=== PATIENT | male | born 1945 | race Caucasian/White ===

== ENCOUNTER 2017-01-12 15:05 | Inpatient (IN) | payer MEDICARE, BC ==
[~2017-01-12] VITALS: Ht 167.6 cm; Wt 73.5 kg
[2017-01-12 16:00] VITALS: BP 130/79
[2017-01-12] MEDS ORDERED: QUET100T PO (16:17)
[2017-01-12] MEDS ORDERED: ASPI-605 PO (16:17)
[2017-01-12] MEDS ORDERED: QUET25TA PO (16:17)
[2017-01-12] MEDS ORDERED: MAGNESIUM HYDROXIDE 30 ML UDC PO PRN (16:30)
[2017-01-12] MEDS ORDERED: ACETAMINOPHEN 325 MG TABLET PO PRN (16:30)
[2017-01-12] MEDS ORDERED: MAG HYDROX/AL HYDROX/SIMETH 30 ML UDC PO PRN (16:30)
[2017-01-13 08:00] VITALS: BP 150/88
[2017-01-13 08:40] LABS: BILIRUBIN,TOTAL 0.8 mg/dL (0.2-1.0); CALCIUM, SERUM 8.9 mg/dL (8.5-10.1); POTASSIUM 4.4 mmol/L (3.5-5.1); TOTAL PROTEIN, SERUM 7.6 g/dL (6.4-8.2)
[2017-01-13] MEDS: ASPIRIN EC 81 MG TABLET.DR PO SCH (09:06)
[2017-01-13] MEDS: OLANZAPINE 5 MG/TAB.RAPDIS PO SCH ×3 (13:50→17:29)
[2017-01-13 16:00] VITALS: BP 154/80
[2017-01-13 19:40] VITALS: BP 154/92
[2017-01-14 08:00] VITALS: BP 143/84
[2017-01-14] MEDS: ASPIRIN EC 81 MG TABLET.DR PO SCH (08:40)
[2017-01-14] MEDS: OLANZAPINE 5 MG/TAB.RAPDIS PO SCH ×2 (08:40→18:26)
[2017-01-14 16:14] VITALS: BP 144/89
[2017-01-14 20:00] VITALS: BP 104/54
[2017-01-15 07:58] LABS: BASOPHILS % (AUTO) 0.6 % (0.0-2.0); EOSINOPHILS # (AUTO) 0.3 /CMM (0.0-0.7); EOSINOPHILS % (AUTO) 4.3 % (0.0-6.0); HEMATOCRIT 43 % (39-51); HEMOGLOBIN 14.3 g/dL (13.5-17.5); LYMPHOCYTES # (AUTO) 1.5 /CMM (0.8-4.8); LYMPHOCYTES % (AUTO) 20.9 % (20.0-44.0); MEAN CORPUSCULAR HEMOGLOBIN 33 PG (26.0-33.0); MEAN CORPUSCULAR HGB CONC 33 g/dl (31.0-36.0); MEAN CORPUSCULAR VOLUME 99 fL (80-96); MONOCYTES # (AUTO) 0.6 /CMM (0.1-1.30); NEUTROPHILS # (AUTO) 4.6 /CMM (1.8-8.9); NEUTROPHILS % (AUTO) 66.2 % (43.0-81.0); PLATELET COUNT (AUTO) 190 /CMM (150-450); RED BLOOD CELL COUNT(AUTO) 4.38 MIL/uL (4.5-6.0)
[2017-01-15 08:00] VITALS: BP 150/98
[2017-01-15 08:03] LABS: KETONES,URINE NEGATIVE (NEGATIVE); LEUKOCYTE ESTERASE ,URINE NEGATIVE (NEGATIVE); PH,URINE 6.5 (5.0-8.0)
[2017-01-15] MEDS: ASPIRIN EC 81 MG TABLET.DR PO SCH (08:22)
[2017-01-15] MEDS: OLANZAPINE 5 MG/TAB.RAPDIS PO SCH ×2 (08:22→17:44)
[2017-01-15 08:30] LABS: ADD UA MICROSCOPIC YES
[2017-01-15 08:32] LABS: WBC,URINE 0-2 /HPF (0-3)
[2017-01-15 08:33] LABS: ADD URINE CULTURE NO
[2017-01-15 16:00] VITALS: BP 113/65
[2017-01-15] MEDS: OLANZAPINE 5 MG/TAB.RAPDIS PO PRN (19:57)
[2017-01-15] MEDS: TEMAZEPAM 7.5 MG CAPSULE PO PRN (21:07)
[2017-01-16 08:00] VITALS: BP 148/93
[2017-01-16] MEDS: OLANZAPINE 5 MG/TAB.RAPDIS PO SCH ×2 (09:03→16:21)
[2017-01-16] MEDS: ASPIRIN EC 81 MG TABLET.DR PO SCH (09:04)
[2017-01-16] MEDS: NEOMY SULF/BACITRAC ZN/POLY 15 GM TUBE TP SCH (11:00)
[2017-01-16 16:00] VITALS: BP 126/61
[2017-01-16 19:58] VITALS: BP 135/84
[2017-01-16] MEDS: OLANZAPINE 5 MG/TAB.RAPDIS PO PRN (21:22)
[2017-01-16] MEDS: TEMAZEPAM 7.5 MG CAPSULE PO PRN (21:22)
[2017-01-17] MEDS: ASPIRIN EC 81 MG TABLET.DR PO SCH (08:22)
[2017-01-17] MEDS: OLANZAPINE 5 MG/TAB.RAPDIS PO SCH ×2 (08:22→16:45)
[2017-01-17 09:02] VITALS: BP 153/80
[2017-01-17] MEDS: NEOMY SULF/BACITRAC ZN/POLY 15 GM TUBE TP SCH (10:40)
[2017-01-17 16:00] VITALS: BP 131/77
[2017-01-17 20:00] VITALS: BP 117/73
[2017-01-18 08:00] VITALS: BP 130/80
[2017-01-18] MEDS: ASPIRIN EC 81 MG TABLET.DR PO SCH (08:28)
[2017-01-18] MEDS: OLANZAPINE 5 MG/TAB.RAPDIS PO SCH ×2 (08:28→16:52)
[2017-01-18] MEDS: NEOMY SULF/BACITRAC ZN/POLY 15 GM TUBE TP SCH (08:29)
[2017-01-18 16:00] VITALS: BP 139/74
[2017-01-18 17:34] VITALS: BP 139/74
[2017-01-18 20:00] VITALS: BP 113/73
[2017-01-19 07:46] VITALS: BP 142/77
[2017-01-19] MEDS: OLANZAPINE 5 MG/TAB.RAPDIS PO SCH (08:10)
[2017-01-19] MEDS: ASPIRIN EC 81 MG TABLET.DR PO SCH (08:10)
[2017-01-19] MEDS: NEOMY SULF/BACITRAC ZN/POLY 15 GM TUBE TP SCH (08:12)
== END 2017-01-19 12:00 | disposition home or self-care (01) | DRG 885 ==
LOC: GPS 15:05
PROVIDERS: ADMIT Psychiatry & Neurology Psychosomatic Medicine; ATTEND Family Medicine
DX: F29 Unspecified psychosis not due to a substance or known physiological condition (principal); M48.50XA Collapsed vertebra, not elsewhere classified, site unspecified, initial encounter for fracture; F03.90 Unspecified dementia, unspecified severity, without behavioral disturbance, psychotic disturbance, mood disturbance, and anxiety; F32.9 Major depressive disorder, single episode, unspecified; I25.10 Atherosclerotic heart disease of native coronary artery without angina pectoris; I25.2 Old myocardial infarction; M81.0 Age-related osteoporosis without current pathological fracture; M41.9 Scoliosis, unspecified; G89.29 Other chronic pain; Z86.73 Personal history of transient ischemic attack (TIA), and cerebral infarction without residual deficits; Z95.1 Presence of aortocoronary bypass graft; R56.9 Unspecified convulsions; Z95.2 Presence of prosthetic heart valve; I73.9 Peripheral vascular disease, unspecified
CPT/HCPCS: 36415; 80053-TC; 81000-TC; 82306; 84443-TC; 85025-TC; 87081-TC; A6402